=== PATIENT | female | born 1985 | race Two or more races ===

== ENCOUNTER 2024-03-24 13:10 | Emergency (ER) | payer OTHER ==
[~2024-03-24] VITALS: Ht 157.5 cm; Wt 68.0 kg
[2024-03-24 13:15] VITALS: TEMP 98.3
[2024-03-24] MEDS ORDERED: KETOROLAC TROMETHAMINE 15 MG/ML VIAL ONE (13:58)
[2024-03-24] MEDS: KETOROLAC TROMETHAMINE 15 MG/ML VIAL IM ONE (14:13)
[2024-03-24 15:15] VITALS: BP 110/65; O2SAT 99
== END 2024-03-24 15:02 | disposition home or self-care (01) ==
LOC: EDBD 13:10 → ER 13:10
DX: S13.4XXA Sprain of ligaments of cervical spine, initial encounter (principal); M54.6 Pain in thoracic spine; M79.605 Pain in left leg; R07.9 Chest pain, unspecified; V43.52XA Car driver injured in collision with other type car in traffic accident, initial encounter; Y93.89 Activity, other specified; Y92.488 Other paved roadways as the place of occurrence of the external cause; Y99.8 Other external cause status
CPT/HCPCS: 99283; 96372; J1885